=== PATIENT | female | born 1935 | race Two or more races ===

== ENCOUNTER 2017-04-04 18:54 | Inpatient (IN) | payer SELFPAY ==
[~2017-04-04] VITALS: Ht 144.8 cm; Wt 58.4 kg
[~2017-04-04 18:54] MED LIST: CARV6.2551 PO; CITA10TA70 PO; FOLITAB45 OR; FURO40TA PO
[2017-04-04] MEDS ORDERED: SODIUM CHLORIDE 0.9% 1,000 ML IV ONE ×3 (19:09→23:45)
[2017-04-04] MEDS ORDERED: NOREPINEPHRINE BITARTRATE 250 ML IV ONE (19:09)
[2017-04-04] MEDS ORDERED: SUCCINYLCHOLINE CHLORIDE 20 MG/ML 10ML VIAL IV ONE (19:10)
[2017-04-04] MEDS ORDERED: ETOMIDATE (2MG/ML) 20ML VIAL IV ONE (19:10)
[2017-04-04 19:32] LABS: CONDITION Y; DEFINITIVE SEE PRINTOUT; Mean Corpuscular Hemoglobin 33.8 pg (28.0-32.0); Mean Corpuscular Hgb Conc. 33.3 g/dL (32.0-36.0); Mean Corpuscular Volume 101.7 fL (80.0-100.0); Mean Platelet Volume 8.4 fL (7.4-10.4); Platelet Count (auto) 196 10^3/uL (140-450); Red Cell Distribution Width 15.3 % (11.6-16.0); SUSPECT SEE PRINTOUT; White Blood Cell 24.2 10^3/uL (4.4-10.8)
[2017-04-04 19:35] LABS: Metamyelocytes % 0; Myelocytes % 0; Promyelocytes % 0; Reactive Lymphocytes 0
[2017-04-04] MEDS ORDERED: PIPERACILLIN-TAZOB 3.375GM 100 ML IV ONE (19:45)
[2017-04-04] MEDS ORDERED: VANCOMYCIN 1GM/250ML D5W 250 ML IV ONE (19:45)
[2017-04-04 19:53] LABS: Albumin 2.3 g/dL (3.4-5.0); BUN/Creatinine Ratio 17.1; Magnesium 2.2 mg/dL (1.6-2.6); Potassium 3.4 mmol/L (3.5-5.1)
[2017-04-04 19:58] LABS: Bilirubin, Total 2.8 mg/dL (0.2-1.0); Lactic Acid w/Reflex 6.8 mmol/L (0.4-2.0); Total Protein 6.5 g/dL (6.4-8.2)
[2017-04-04 19:59] LABS: Giant Platelets Few; Macrocytosis Slight; Platelet Estimate Adequate
[2017-04-04 20:01] LABS: B-Type Natriuretic Peptide 633.58 pg/mL (0-100)
[2017-04-04 20:02] LABS: REFLEX LACTIC ACID YES OR NO YES; Temperature: 22.7 C (20.0-25.0)
[2017-04-04] MEDS ORDERED: SODIUM CHLORIDE 0.9% 2,000 ML IV ONE (20:15)
[2017-04-04] MEDS ORDERED: MIDAZOLAM DRIP 50 mg/50mL 50 ML IV ONE (20:17)
[2017-04-04 20:45] LABS: Allen Test Modified; Base Excess -7.5 mmol/L (-2.0-2.0); Blood COHb 0.3 % (0.5-1.5); Blood MetHb 0.3 % (0.0-1.5); HCO3 17.7 mmol/L (22-26.0); MODE VENT - A/C; O2Hb 95.4 % (94.0-97.0); PCO2 35.3 mmHg (35.0-45.0); PCO2(T) 35.3 mmHg (35.0-45.0); PO2 87.7 mmHg (80.0-100.0); PO2(T) 87.7 mmHg (80.0-100.0); Sample Type Arterial; pH 7.319 (7.350-7.450)
[2017-04-04] MEDS: MIDAZOLAM DRIP 50 mg/50mL 50 ML IV SCH (20:56)
[2017-04-04 20:58] LABS: Urine Bilirubin Negative (Negative); Urine Blood 1+ /uL (Negative); Urine Color Yellow (Yellow); Urine Glucose 4+ mg/dL (Normal); Urine Ketone Negative (Negative); Urine Nitrite Negative (Negative); Urine RBC <1 /hpf (0 - 4); Urine Squamous Epithelial Cell FEW /hpf (<5); Urine Urobilinogen Normal (Negative); Urine pH 5.5 (5.0-8.0)
[2017-04-04] MEDS ORDERED: DOPamine 1600MCG/ML 250 ML IV ONE (21:15)
[2017-04-04 22:00] VITALS: BP 92/43
[2017-04-04 22:15] VITALS: BP 92/43
[2017-04-05] VITALS (90 sets, daily range): BP systolic 66–167; BP diastolic 27–141
[2017-04-05] MEDS: NOREPINEPHRINE BITARTRATE 250 ML IV SCH ×5 (00:05→19:20)
[2017-04-05] MEDS ORDERED: ONDANSETRON HCL 4 MG/2 ML VIAL IV PRN (00:30)
[2017-04-05] MEDS ORDERED: NITROGLYCERIN 0.4 MG SL TAB SL PRN (00:30)
[2017-04-05] MEDS ORDERED: DEXTROSE (50%) 50ML SYRG IV PRN (00:30)
[2017-04-05] MEDS ORDERED: VANCOMYCIN PER PHARMACY 0 MG IV SCH (00:30)
[2017-04-05] MEDS ORDERED: PANTOPRAZOLE 40 MG/10 ML VIAL IV ONE (00:30)
[2017-04-05] MEDS ORDERED: MORPHINE SULF INJ 2 MG/ML SYRINGE 1ML IV PRN ×2 (00:30)
[2017-04-05] MEDS ORDERED: VASOPRESSIN 20 UNIT/ML ONE (00:42)
[2017-04-05] MEDS: SODIUM CHLORIDE 0.9% 1,000 ML IV SCH ×2 (00:58→13:49)
[2017-04-05] MEDS ORDERED: ALBUMIN 5% 250 ML IV ONE (01:00)
[2017-04-05] MEDS: VASOPRESSIN 50 UNITS in SODIUM CHL 0.9% 247.5 ML IV SCH (01:10)
[2017-04-05 01:30] LABS: Base Excess -9.2 mmol/L (-2.0-2.0); Blood 02Sat 89.6 % (96-100); Blood COHb 0.2 % (0.5-1.5); Blood MetHb 0.4 % (0.0-1.5); HCO3 16.7 mmol/L (22-26.0); HHb 10.3 % (0.0-5.0); MODE VENT - A/C; O2Hb 89.1 % (94.0-97.0); PCO2 36.1 mmHg (35.0-45.0); PCO2(T) 36.1 mmHg (35.0-45.0); Room 1036-ERT; Sample Type Arterial; pH 7.283 (7.350-7.450)
[2017-04-05 01:42] LABS: INR 1.53 (0.9-1.15); Partial Thromboplastin Time 37.5 sec (22.64-33.71); Prothrombin Time 16.7 sec (9.37-12.3)
[2017-04-05 03:48] LABS: CONDITION Y; DEFINITIVE SEE PRINTOUT; Hematocrit 35.4 % (36.0-46.0); Hemoglobin 11.7 g/dL (12.2-16.2); Mean Corpuscular Volume 103.1 fL (80.0-100.0); Platelet Count (auto) 169 10^3/uL (140-450); Red Cell Distribution Width 15.7 % (11.6-16.0); SUSPECT SEE PRINTOUT; White Blood Cell 27.6 10^3/uL (4.4-10.8)
[2017-04-05 03:56] LABS: Promyelocytes % 0; Reactive Lymphocytes 0
[2017-04-05 04:05] LABS: Lactic Acid w/Reflex 5.8 mmol/L (0.4-2.0)
[2017-04-05 04:10] LABS: Albumin 2.5 g/dL (3.4-5.0); BUN/Creatinine Ratio 19.8; Bilirubin, Total 3.4 mg/dL (0.2-1.0); Calcium 8.1 mg/dL (8.5-10.1); Potassium 3.5 mmol/L (3.5-5.1); Total Protein 6.5 g/dL (6.4-8.2)
[2017-04-05 04:18] LABS: REFLEX LACTIC ACID YES OR NO NO
[2017-04-05 04:44] LABS: Hypersegmented Neutrophils Present; Metamyelocytes % 7; Myelocytes % 1
[2017-04-05 04:45] LABS: Anisocytosis Slight; Macrocytosis Slight; Platelet Estimate Adequate
[2017-04-05] MEDS: ACCU-CHEK COMFORT CURVE STRIP VI SCH ×3 (05:22→17:57)
[2017-04-05] MEDS: InsuLIN REG 1unit/0.01ml Soln (100units/ml) SC SCH ×3 (05:22→18:00)
[2017-04-05] MEDS: PIPERACILLIN-TAZOB 2.25GM 50 ML IV SCH ×4 (05:22→23:48)
[2017-04-05 06:37] LABS: Base Excess -9.8 mmol/L (-2.0-2.0); Blood 02Sat 94.4 % (96-100); Blood COHb 1.3 % (0.5-1.5); Blood MetHb 0.1 % (0.0-1.5); HCO3 16.3 mmol/L (22-26.0); HHb 5.5 % (0.0-5.0); MODE VENT - A/C; O2Hb 93.1 % (94.0-97.0); PCO2 36.6 mmHg (35.0-45.0); PCO2(T) 36.6 mmHg (35.0-45.0); PO2 73.7 mmHg (80.0-100.0); PO2(T) 73.7 mmHg (80.0-100.0); Sample Type Arterial; pH 7.267 (7.350-7.450)
[2017-04-05] MEDS: SODIUM BICARBONATE 50ML VIAL 50 ML in SOD CHL 0.45% 1,000 ML IV SCH (09:42)
[2017-04-05] MEDS: PANTOPRAZOLE 40 MG/10 ML VIAL IV SCH (10:33)
[2017-04-05 11:15] LABS: Vitamin B12 1801 pg/mL (211-911)
[2017-04-05 11:55] LABS: Temperature: 23.3 C (20.0-25.0)
[2017-04-05] MEDS ORDERED: SODIUM BICARBONATE 8.4% INJ 50ML SYRINGE ONE (14:59)
[2017-04-05] MEDS ORDERED: SODIUM BICARBONATE 8.4 % INJ 50ML VIAL IV ONE (15:00)
[2017-04-05 16:39] LABS: Base Excess -8.2 mmol/L (-2.0-2.0); Blood 02Sat 95.5 % (96-100); Blood COHb 0.4 % (0.5-1.5); Blood MetHb 0.2 % (0.0-1.5); HCO3 16.7 mmol/L (22-26.0); HHb 4.5 % (0.0-5.0); MODE VENT - A/C; O2Hb 94.9 % (94.0-97.0); PCO2 32.5 mmHg (35.0-45.0); PCO2(T) 32.5 mmHg (35.0-45.0); PO2 77.9 mmHg (80.0-100.0); PO2(T) 77.9 mmHg (80.0-100.0); Sample Type Arterial; pH 7.329 (7.350-7.450)
[2017-04-05 17:38] LABS: Magnesium 1.7 mg/dL (1.6-2.6)
[2017-04-05 17:45] LABS: Lactic Acid w/Reflex 3.6 mmol/L (0.4-2.0)
[2017-04-05 17:50] LABS: Potassium 2.9 mmol/L (3.5-5.1)
[2017-04-05] MEDS: NYSTATIN (MOUTH-THROAT) 500,000 UNITS/5 ML SUSP MT SCH ×2 (17:57→22:11)
[2017-04-05 18:15] LABS: REFLEX LACTIC ACID YES OR NO YES
[2017-04-05] MEDS: MIDAZOLAM DRIP 50 mg/50mL 50 ML IV SCH (18:55)
[2017-04-05] MEDS ORDERED: MAGNESIUM SULFATE 1GM/100ML 100 ML IV ONE (19:00)
[2017-04-05] MEDS ORDERED: POTASSIUM CHL 20MEQ/100ML 100 ML IV ONE (19:00)
[2017-04-05] MEDS: VANCOMYCIN 1GM/250ML D5W 250 ML IV SCH (20:51)
[2017-04-05 23:46] LABS: BUN/Creatinine Ratio 20.7; Calcium 7.1 mg/dL (8.5-10.1); Magnesium 2.3 mg/dL (1.6-2.6); Potassium 3.3 mmol/L (3.5-5.1); REFLEX LACTIC ACID YES OR NO NO
[2017-04-06] VITALS (107 sets, daily range): BP systolic 84–160; BP diastolic 31–103
[2017-04-06] MEDS: NOREPINEPHRINE BITARTRATE 250 ML IV SCH ×5 (00:01→23:16)
[2017-04-06] MEDS: VASOPRESSIN 50 UNITS in SODIUM CHL 0.9% 247.5 ML IV SCH (00:30)
[2017-04-06] MEDS: InsuLIN REG 1unit/0.01ml Soln (100units/ml) SC SCH ×4 (00:34→17:54)
[2017-04-06] MEDS: ACCU-CHEK COMFORT CURVE STRIP VI SCH ×4 (00:35→17:54)
[2017-04-06] MEDS: MIDAZOLAM DRIP 50 mg/50mL 50 ML IV SCH ×4 (03:00→23:16)
[2017-04-06 04:10] LABS: CONDITION Y; Hemoglobin 10.9 g/dL (12.2-16.2); Mean Corpuscular Hemoglobin 33.3 pg (28.0-32.0); Mean Corpuscular Hgb Conc. 33.2 g/dL (32.0-36.0); Mean Corpuscular Volume 100.3 fL (80.0-100.0); Mean Platelet Volume 9.8 fL (7.4-10.4); Platelet Count (auto) 138 10^3/uL (140-450); SUSPECT SEE PRINTOUT; White Blood Cell 21.6 10^3/uL (4.4-10.8)
[2017-04-06] MEDS: SODIUM BICARBONATE 50ML VIAL 50 ML in SOD CHL 0.45% 1,000 ML IV SCH (04:18)
[2017-04-06 04:23] LABS: Metamyelocytes % 0; Myelocytes % 0; Promyelocytes % 0; Reactive Lymphocytes 0
[2017-04-06 04:36] LABS: Potassium 3.1 mmol/L (3.5-5.1)
[2017-04-06 04:45] LABS: BUN/Creatinine Ratio 21.8; Calcium 7.4 mg/dL (8.5-10.1); Magnesium 2.2 mg/dL (1.6-2.6)
[2017-04-06 04:50] LABS: Bilirubin, Total 1.5 mg/dL (0.2-1.0); Total Protein 5.8 g/dL (6.4-8.2)
[2017-04-06] MEDS: PIPERACILLIN-TAZOB 2.25GM 50 ML IV SCH ×3 (06:04→18:12)
[2017-04-06] MEDS: NYSTATIN (MOUTH-THROAT) 500,000 UNITS/5 ML SUSP MT SCH ×4 (06:04→22:04)
[2017-04-06] MEDS ORDERED: POTASSIUM CHL 20MEQ/100ML 100 ML IV ONE (06:30)
[2017-04-06 06:37] LABS: Burr Cells FEW; Platelet Estimate Decreased
[2017-04-06 06:59] LABS: Base Excess -4.9 mmol/L (-2.0-2.0); Blood 02Sat 96.2 % (96-100); Blood COHb 0.9 % (0.5-1.5); Blood MetHb 0.3 % (0.0-1.5); HCO3 19.8 mmol/L (22-26.0); HHb 3.8 % (0.0-5.0); MODE VENT - A/C; PCO2 35.6 mmHg (35.0-45.0); PCO2(T) 35.6 mmHg (35.0-45.0); PO2 81.7 mmHg (80.0-100.0); PO2(T) 81.7 mmHg (80.0-100.0); Sample Type Arterial; pH 7.364 (7.350-7.450)
[2017-04-06] MEDS: PANTOPRAZOLE 40 MG/10 ML VIAL IV SCH (10:27)
[2017-04-06] MEDS ORDERED: SODIUM BICARBONATE 50ML VIAL 50 ML in SOD CHL 0.45% 1,000 ML IV SCH (11:00)
[2017-04-06 12:51] LABS: Phosphorus 1.9 mg/dL (2.5-4.90)
[2017-04-06] MEDS: ALBUMIN 25% 100 ML IV SCH ×2 (14:29→21:59)
[2017-04-06] MEDS: D5W IV SCH ×2 (15:20→22:42)
[2017-04-06] MEDS: SODIUM BICARBONATE IV SCH ×2 (15:20→22:42)
[2017-04-06] MEDS: POTASSIUM CHLORIDE IV SCH ×2 (15:20→22:42)
[2017-04-06] MEDS: VANCOMYCIN 1GM/250ML D5W 250 ML IV SCH (20:10)
[2017-04-07] VITALS (98 sets, daily range): BP systolic 77–154; BP diastolic 31–76
[2017-04-07 04:11] LABS: CONDITION Y; Hemoglobin 9.7 g/dL (12.2-16.2); Mean Corpuscular Hemoglobin 33.5 pg (28.0-32.0); Mean Corpuscular Hgb Conc. 33.6 g/dL (32.0-36.0); Mean Corpuscular Volume 99.7 fL (80.0-100.0); Mean Platelet Volume 10.2 fL (7.4-10.4); Platelet Count (auto) 93 10^3/uL (140-450); Red Cell Distribution Width 15.9 % (11.6-16.0); SUSPECT SEE PRINTOUT; White Blood Cell 17.8 10^3/uL (4.4-10.8)
[2017-04-07 04:22] LABS: Metamyelocytes % 0; Myelocytes % 0; Promyelocytes % 0; Reactive Lymphocytes 0
[2017-04-07 04:35] LABS: Albumin 2.6 g/dL (3.4-5.0); Alkaline Phosphatase 82 U/L (45-117); Anion Gap 11 (5-15); Aspartate Aminotransferase 28 U/L (15-37); BUN/Creatinine Ratio 18.8; Bilirubin, Total 1.3 mg/dL (0.2-1.0); Blood Urea Nitrogen 26 mg/dL (7-18); Calcium 7.4 mg/dL (8.5-10.1); Carbon Dioxide 20 mmol/L (21-32); Chloride 110 mmol/L (98-107); Cholesterol < 50 mg/dL (< 200); GFR African American 47 mL/min; GFR Non-African American 39 mL/min; Glucose 178 mg/dL (74-106); HDL Cholesterol 8 mg/dL (40-59); LDL Cholesterol 23 mg/dL (< 100); Potassium 3.4 mmol/L (3.5-5.1); Sodium 141 mmol/L (136-145); Total Protein 5.5 g/dL (6.4-8.2); Triglycerides 168 mg/dL (< 150)
[2017-04-07] MEDS: ACCU-CHEK COMFORT CURVE STRIP VI SCH ×4 (04:47→18:15)
[2017-04-07] MEDS: PIPERACILLIN-TAZOB 2.25GM 50 ML IV SCH ×2 (05:04)
[2017-04-07] MEDS: NYSTATIN (MOUTH-THROAT) 500,000 UNITS/5 ML SUSP MT SCH ×4 (05:05→23:00)
[2017-04-07] MEDS: InsuLIN REG 1unit/0.01ml Soln (100units/ml) SC SCH ×4 (05:13→18:00)
[2017-04-07] MEDS ORDERED: SUCCINYLCHOLINE CHLORIDE 20 MG/ML 10ML VIAL IV ONE ×2 (07:02→07:03)
[2017-04-07] MEDS ORDERED: LIDOCAINE 1% HCL (LOCAL ANESTH.) INJ 20ML MDV ONE ×2 (07:02→07:03)
[2017-04-07] MEDS ORDERED: fentaNYL CITRATE 100 MCG/2 ML VL ONE (07:12)
[2017-04-07] MEDS ORDERED: PROPOFOL 10 MG/ML 20 ML IV ONE (07:12)
[2017-04-07] MEDS ORDERED: ONDANSETRON HCL 4 MG/2 ML VIAL ONE (07:12)
[2017-04-07] MEDS ORDERED: SODIUM CHLORIDE LOCK 10 ML ONE (07:12)
[2017-04-07] MEDS ORDERED: MIDAZOLAM HCL 1MG/1ML-2 ML VIAL ONE (07:12)
[2017-04-07 07:26] LABS: Platelet Estimate Decreased
[2017-04-07] MEDS ORDERED: ALBUMIN 5% 250 ML IV ONE (07:45)
[2017-04-07] MEDS ORDERED: IOHEXOL 300 MG/ML 100ML BOTTLE IJ ONE (07:45)
[2017-04-07] MEDS ORDERED: fentaNYL CITRATE 5 ML ONE (07:46)
[2017-04-07] MEDS ORDERED: ROCURONIUM 10MG/ML 10ML VIAL IV ONE (07:46)
[2017-04-07 08:04] LABS: Allen Test Modified; Base Excess -4.7 mmol/L (-2.0-2.0); Blood 02Sat 95.8 % (96-100); Blood COHb 0.4 % (0.5-1.5); Blood MetHb 0.2 % (0.0-1.5); HHb 4.2 % (0.0-5.0); MODE VENT - A/C; O2Hb 95.2 % (94.0-97.0); PCO2 30.8 mmHg (35.0-45.0); PCO2(T) 30.8 mmHg (35.0-45.0); PIP 25; PO2 80.1 mmHg (80.0-100.0); PO2(T) 80.1 mmHg (80.0-100.0); Sample Type Arterial; pH 7.408 (7.350-7.450)
[2017-04-07 08:39] LABS: INR 1.16 (0.9-1.15); Partial Thromboplastin Time 39.5 sec (22.64-33.71); Prothrombin Time 12.7 sec (9.37-12.3)
[2017-04-07] MEDS: PANTOPRAZOLE 40 MG/10 ML VIAL IV SCH (10:41)
[2017-04-07] MEDS: ALBUMIN 25% 100 ML IV SCH ×2 (10:41→23:00)
[2017-04-07] MEDS ORDERED: cefTRIAXone 1GM/50ML D5W 50 ML IV ONE (12:00)
[2017-04-07] MEDS: NOREPINEPHRINE BITARTRATE 250 ML IV SCH (12:50)
[2017-04-07] MEDS: MIDAZOLAM DRIP 50 mg/50mL 50 ML IV SCH (12:50)
[2017-04-07] MEDS: D5W IV SCH (15:00)
[2017-04-07] MEDS: POTASSIUM CHLORIDE IV SCH (15:00)
[2017-04-07] MEDS: SODIUM BICARBONATE IV SCH (15:00)
[2017-04-07] MEDS: metroNIDAZOLE 500MG/100ML 100 ML IV SCH ×2 (15:00→23:00)
[2017-04-07] MEDS ORDERED: POTASSIUM CHL 20MEQ/100ML 200 ML IV ONE (16:02)
[2017-04-07] MEDS: POTASSIUM CHL 20MEQ/100ML 100 ML IV SCH ×2 (16:15→18:09)
[2017-04-08] VITALS (89 sets, daily range): BP systolic 66–154; BP diastolic 30–81
[2017-04-08] MEDS: ACCU-CHEK COMFORT CURVE STRIP VI SCH ×4 (00:40→18:27)
[2017-04-08] MEDS: InsuLIN REG 1unit/0.01ml Soln (100units/ml) SC SCH ×4 (01:02→18:00)
[2017-04-08] MEDS: D5W IV SCH ×2 (03:00→06:48)
[2017-04-08] MEDS: POTASSIUM CHLORIDE IV SCH ×2 (03:00→06:48)
[2017-04-08] MEDS: SODIUM BICARBONATE IV SCH ×2 (03:00→06:48)
[2017-04-08] MEDS: metroNIDAZOLE 500MG/100ML 100 ML IV SCH ×3 (06:00→22:08)
[2017-04-08] MEDS: NYSTATIN (MOUTH-THROAT) 500,000 UNITS/5 ML SUSP MT SCH ×4 (06:00→22:11)
[2017-04-08 06:40] LABS: Basophils # (auto) 0 uL; Basophils % (auto) 0.1 % (0.0-2.0); CONDITION Y; DEFINITIVE SEE PRINTOUT; Eosinophils # (auto) 0.3 uL; Eosinophils % (auto) 2.6 % (0.0-7.0); Hematocrit 33.3 % (36.0-46.0); Hemoglobin 11.1 g/dL (12.2-16.2); Lymphocytes # (auto) 0.7 uL; Lymphocytes % (auto) 5.9 % (10.0-50.0); Mean Corpuscular Hemoglobin 32.7 pg (28.0-32.0); Mean Corpuscular Hgb Conc. 33.3 g/dL (32.0-36.0); Mean Corpuscular Volume 98.1 fL (80.0-100.0); Monocytes # (auto) 0.4 uL; Monocytes % (auto) 3.5 % (0.0-12.0); Neutrophils # (auto) 10.1 uL; Neutrophils % (auto) 87.9 % (37.0-80.0); Platelet Count (auto) 59 10^3/uL (140-450); SUSPECT SEE PRINTOUT; White Blood Cell 11.5 10^3/uL (4.4-10.8)
[2017-04-08 07:11] LABS: Albumin 2.7 g/dL (3.4-5.0); Bilirubin, Total 1.5 mg/dL (0.2-1.0); Calcium 7.9 mg/dL (8.5-10.1); Potassium 4.7 mmol/L (3.5-5.1); Total Protein 5.1 g/dL (6.4-8.2)
[2017-04-08 07:19] LABS: BUN/Creatinine Ratio 20.6
[2017-04-08 08:06] LABS: B-Type Natriuretic Peptide 796.64 pg/mL (0-100)
[2017-04-08 08:11] LABS: Temperature: 24.5 C (20.0-25.0)
[2017-04-08] MEDS ORDERED: cefTRIAXone 1GM/50ML D5W 50 ML IV SCH (09:00)
[2017-04-08] MEDS: NOREPINEPHRINE BITARTRATE 250 ML IV SCH (09:30)
[2017-04-08 09:53] LABS: Base Excess -1.1 mmol/L (-2.0-2.0); Blood 02Sat 95.2 % (96-100); Blood COHb 1.4 % (0.5-1.5); Blood MetHb 0.3 % (0.0-1.5); HCO3 23.8 mmol/L (22-26.0); HHb 4.7 % (0.0-5.0); MODE VENT - A/C; O2Hb 93.6 % (94.0-97.0); PCO2 40.5 mmHg (35.0-45.0); PCO2(T) 40.5 mmHg (35.0-45.0); PO2 74.4 mmHg (80.0-100.0); PO2(T) 74.4 mmHg (80.0-100.0); Sample Type Arterial; pH 7.387 (7.350-7.450)
[2017-04-08] MEDS: PANTOPRAZOLE 40 MG/10 ML VIAL IV SCH (10:10)
[2017-04-08] MEDS ORDERED: POTASSIUM CHL 20 Meq TABLET PO ONE (14:30)
[2017-04-08] MEDS ORDERED: FUROSEMIDE 20 MG/2 ML VIAL IV ONE (14:30)
[2017-04-08] MEDS ORDERED: POTASSIUM CHL 10% (20 MEQ/15ML) 15ml ORAL SOLN ONE (15:17)
[2017-04-08] MEDS: MORPHINE SULF INJ 2 MG/ML SYRINGE 1ML IV PRN (15:27)
[2017-04-08] MEDS ORDERED: POTASSIUM CHL 10% (20 MEQ/15ML) 15ml ORAL SOLN GT ONE (15:30)
[2017-04-08] MEDS ORDERED: ALBUMIN 25% 100 ML IV ONE (17:00)
[2017-04-08] MEDS: MIDAZOLAM DRIP 50 mg/50mL 50 ML IV SCH (20:08)
[2017-04-08] MEDS: cefTRIAXone 1GM/50ML D5W 50 ML IV SCH (21:14)
[2017-04-08] MEDS ORDERED: ALBUMIN 25% 100 ML IV SCH (22:00)
[2017-04-09] VITALS (105 sets, daily range): BP systolic 44–168; BP diastolic 21–96
[2017-04-09] MEDS: ACETAMINOPHEN 325 MG TAB PO PRN ×2 (02:00→15:14)
[2017-04-09 04:31] LABS: Basophils # (auto) 0 uL; Basophils % (auto) 0.1 % (0.0-2.0); CONDITION Y; DEFINITIVE SEE PRINTOUT; Eosinophils # (auto) 0.3 uL; Eosinophils % (auto) 2.8 % (0.0-7.0); Hematocrit 35.1 % (36.0-46.0); Hemoglobin 11.8 g/dL (12.2-16.2); Lymphocytes # (auto) 0.9 uL; Lymphocytes % (auto) 8.3 % (10.0-50.0); Mean Corpuscular Hemoglobin 33.1 pg (28.0-32.0); Mean Corpuscular Hgb Conc. 33.6 g/dL (32.0-36.0); Mean Corpuscular Volume 98.4 fL (80.0-100.0); Mean Platelet Volume 10.1 fL (7.4-10.4); Monocytes # (auto) 0.6 uL; Monocytes % (auto) 5.5 % (0.0-12.0); Neutrophils # (auto) 9.2 uL; Neutrophils % (auto) 83.3 % (37.0-80.0); Platelet Count (auto) 57 10^3/uL (140-450); White Blood Cell 11.1 10^3/uL (4.4-10.8)
[2017-04-09 05:02] LABS: Potassium 4.7 mmol/L (3.5-5.1)
[2017-04-09 05:07] LABS: Albumin 2.8 g/dL (3.4-5.0); BUN/Creatinine Ratio 21.8
[2017-04-09 05:10] LABS: Bilirubin, Total 1.9 mg/dL (0.2-1.0); Total Protein 5.2 g/dL (6.4-8.2)
[2017-04-09] MEDS: ACCU-CHEK COMFORT CURVE STRIP VI SCH ×4 (06:00→18:00)
[2017-04-09] MEDS: NYSTATIN (MOUTH-THROAT) 500,000 UNITS/5 ML SUSP MT SCH ×4 (06:00→22:00)
[2017-04-09] MEDS: metroNIDAZOLE 500MG/100ML 100 ML IV SCH ×3 (06:00→22:00)
[2017-04-09] MEDS: InsuLIN REG 1unit/0.01ml Soln (100units/ml) SC SCH ×4 (06:00→18:00)
[2017-04-09 07:09] LABS: Base Excess 2.2 mmol/L (-2.0-2.0); Blood 02Sat 95.7 % (96-100); Blood COHb 1.7 % (0.5-1.5); Blood MetHb 0.3 % (0.0-1.5); HHb 4.2 % (0.0-5.0); IE RATIO 1.3.4; MODE VENT - A/C; O2Hb 93.8 % (94.0-97.0); PCO2 37.6 mmHg (35.0-45.0); PCO2(T) 37.6 mmHg (35.0-45.0); PIP 23; Sample Type Arterial; Spont Vt 410; pH 7.457 (7.350-7.450)
[2017-04-09] MEDS: cefTRIAXone 1GM/50ML D5W 50 ML IV SCH ×2 (09:04→21:00)
[2017-04-09] MEDS: PANTOPRAZOLE 40 MG/10 ML VIAL IV SCH (09:05)
[2017-04-09] MEDS: Diabetisource AC 1 Liter GT SCH (11:03)
[2017-04-09] MEDS ORDERED: ALBUMIN 25% 100 ML IV ONE (12:30)
[2017-04-09] MEDS ORDERED: FUROSEMIDE 40 MG/4 ML VIAL IV ONE (12:30)
[2017-04-09] MEDS: MIDAZOLAM DRIP 50 mg/50mL 50 ML IV SCH (20:08)
[2017-04-09] MEDS: NOREPINEPHRINE BITARTRATE 250 ML IV SCH (22:15)
[2017-04-10] VITALS (88 sets, daily range): BP systolic 68–165; BP diastolic 27–87
[2017-04-10] MEDS: ACCU-CHEK COMFORT CURVE STRIP VI SCH ×4 (00:19→18:26)
[2017-04-10] MEDS: InsuLIN REG 1unit/0.01ml Soln (100units/ml) SC SCH ×4 (06:00→18:00)
[2017-04-10] MEDS: metroNIDAZOLE 500MG/100ML 100 ML IV SCH ×3 (06:00→22:00)
[2017-04-10] MEDS: NYSTATIN (MOUTH-THROAT) 500,000 UNITS/5 ML SUSP MT SCH ×4 (06:00→22:00)
[2017-04-10] MEDS: cefTRIAXone 1GM/50ML D5W 50 ML IV SCH ×2 (09:06→21:00)
[2017-04-10] MEDS ORDERED: METOCLOPRAMIDE HCL 5MG/ml INJ 2ml VIAL IV ONE (09:15)
[2017-04-10] MEDS: Diabetisource AC 1 Liter GT SCH (09:42)
[2017-04-10] MEDS: PANTOPRAZOLE 40 MG/10 ML VIAL IV SCH (10:06)
[2017-04-10] MEDS: ACETAMINOPHEN 325 MG TAB PO PRN (10:29)
[2017-04-10 11:14] LABS: Basophils # (auto) 0 uL; Basophils % (auto) 0.1 % (0.0-2.0); CONDITION Y; Eosinophils # (auto) 0.3 uL; Eosinophils % (auto) 2.5 % (0.0-7.0); Hematocrit 35.1 % (36.0-46.0); Hemoglobin 11.8 g/dL (12.2-16.2); Lymphocytes % (auto) 7.6 % (10.0-50.0); Mean Corpuscular Hemoglobin 32.8 pg (28.0-32.0); Mean Corpuscular Hgb Conc. 33.6 g/dL (32.0-36.0); Mean Corpuscular Volume 97.6 fL (80.0-100.0); Mean Platelet Volume 10.1 fL (7.4-10.4); Monocytes # (auto) 0.6 uL; Monocytes % (auto) 5.1 % (0.0-12.0); Neutrophils # (auto) 10.8 uL; Neutrophils % (auto) 84.7 % (37.0-80.0); Platelet Count (auto) 81 10^3/uL (140-450); Red Cell Distribution Width 17.3 % (11.6-16.0); White Blood Cell 12.7 10^3/uL (4.4-10.8)
[2017-04-10 11:33] LABS: BUN/Creatinine Ratio 21.2; Calcium 8.4 mg/dL (8.5-10.1); Potassium 3.5 mmol/L (3.5-5.1)
[2017-04-10] MEDS: METOCLOPRAMIDE HCL 5MG/ml INJ 2ml VIAL IV SCH ×2 (14:08→22:00)
[2017-04-10] MEDS ORDERED: SODIUM CHLORIDE 0.9% 1,000 ML IV ONE (16:00)
[2017-04-10] MEDS: MORPHINE SULF INJ 2 MG/ML SYRINGE 1ML IV PRN (17:08)
[2017-04-10] MEDS: MIDAZOLAM DRIP 50 mg/50mL 50 ML IV SCH (20:08)
[2017-04-10] MEDS: NOREPINEPHRINE BITARTRATE 250 ML IV SCH (22:15)
[2017-04-11] VITALS (94 sets, daily range): BP systolic 68–132; BP diastolic 32–90
[2017-04-11] MEDS: InsuLIN REG 1unit/0.01ml Soln (100units/ml) SC SCH ×4 (00:07→18:00)
[2017-04-11] MEDS: ACCU-CHEK COMFORT CURVE STRIP VI SCH ×4 (00:07→18:00)
[2017-04-11 03:17] LABS: Basophils # (auto) 0 uL; Basophils % (auto) 0.1 % (0.0-2.0); CONDITION Y; Eosinophils # (auto) 0.4 uL; Eosinophils % (auto) 3.1 % (0.0-7.0); Hematocrit 33.7 % (36.0-46.0); Hemoglobin 11.2 g/dL (12.2-16.2); Lymphocytes # (auto) 1.1 uL; Lymphocytes % (auto) 9.3 % (10.0-50.0); Mean Corpuscular Hemoglobin 32.6 pg (28.0-32.0); Mean Corpuscular Hgb Conc. 33.2 g/dL (32.0-36.0); Mean Corpuscular Volume 98.4 fL (80.0-100.0); Mean Platelet Volume 9.6 fL (7.4-10.4); Monocytes # (auto) 0.8 uL; Monocytes % (auto) 6.5 % (0.0-12.0); Neutrophils # (auto) 9.6 uL; Platelet Count (auto) 112 10^3/uL (140-450); Red Cell Distribution Width 17.1 % (11.6-16.0); White Blood Cell 11.8 10^3/uL (4.4-10.8)
[2017-04-11 03:33] LABS: BUN/Creatinine Ratio 21.3
[2017-04-11 03:35] LABS: Potassium 2.9 mmol/L (3.5-5.1)
[2017-04-11] MEDS ORDERED: POTASSIUM CHL 20MEQ/100ML 100 ML IV ONE (04:53)
[2017-04-11] MEDS ORDERED: POTASSIUM CHL 10% (20 MEQ/15ML) 15ml ORAL SOLN GT ONE (05:00)
[2017-04-11] MEDS: POTASSIUM CHL 20MEQ/100ML 100 ML IV SCH ×4 (05:00→16:57)
[2017-04-11] MEDS ORDERED: POTASSIUM CHL 10% (20 MEQ/15ML) 15ml ORAL SOLN ONE (05:37)
[2017-04-11] MEDS: METOCLOPRAMIDE HCL 5MG/ml INJ 2ml VIAL IV SCH ×3 (06:00→22:25)
[2017-04-11] MEDS: NYSTATIN (MOUTH-THROAT) 500,000 UNITS/5 ML SUSP MT SCH ×4 (06:00→22:25)
[2017-04-11] MEDS: metroNIDAZOLE 500MG/100ML 100 ML IV SCH ×3 (06:00→22:25)
[2017-04-11] MEDS: cefTRIAXone 1GM/50ML D5W 50 ML IV SCH ×2 (08:59→20:59)
[2017-04-11 09:06] LABS: Allen Test Modified; Base Excess 2.2 mmol/L (-2.0-2.0); Blood 02Sat 95.7 % (96-100); Blood COHb 1.3 % (0.5-1.5); Blood MetHb 0.4 % (0.0-1.5); HCO3 26.3 mmol/L (22-26.0); HHb 4.2 % (0.0-5.0); MODE VENT - A/C; O2Hb 94.1 % (94.0-97.0); PCO2 39.3 mmHg (35.0-45.0); PCO2(T) 40.2 mmHg (35.0-45.0); PO2 79.8 mmHg (80.0-100.0); PO2(T) 82.5 mmHg (80.0-100.0); Sample Type Arterial; pH 7.444 (7.350-7.450)
[2017-04-11] MEDS: PANTOPRAZOLE 40 MG/10 ML VIAL IV SCH (10:00)
[2017-04-11] MEDS ORDERED: FLUCONAZOLE 200MG/100ML 100 ML IV ONE (14:30)
[2017-04-11] MEDS ORDERED: FUROSEMIDE 40 MG/4 ML VIAL IV ONE (14:30)
[2017-04-11] MEDS: NOREPINEPHRINE BITARTRATE 250 ML IV SCH (15:35)
[2017-04-11] MEDS: MIDAZOLAM DRIP 50 mg/50mL 50 ML IV SCH (20:08)
[2017-04-12] VITALS (102 sets, daily range): BP systolic 64–126; BP diastolic 32–68
[2017-04-12] MEDS: ACCU-CHEK COMFORT CURVE STRIP VI SCH ×4 (00:06→18:10)
[2017-04-12] MEDS: InsuLIN REG 1unit/0.01ml Soln (100units/ml) SC SCH ×4 (00:06→18:10)
[2017-04-12 03:38] LABS: Basophils # (auto) 0 uL; Basophils % (auto) 0.1 % (0.0-2.0); CONDITION Y; Eosinophils # (auto) 0.3 uL; Eosinophils % (auto) 2.3 % (0.0-7.0); Hematocrit 32.2 % (36.0-46.0); Hemoglobin 10.6 g/dL (12.2-16.2); Lymphocytes # (auto) 1.2 uL; Lymphocytes % (auto) 10.4 % (10.0-50.0); Mean Corpuscular Hemoglobin 32.5 pg (28.0-32.0); Mean Corpuscular Hgb Conc. 33.1 g/dL (32.0-36.0); Mean Corpuscular Volume 98.1 fL (80.0-100.0); Mean Platelet Volume 9.4 fL (7.4-10.4); Monocytes % (auto) 8.3 % (0.0-12.0); Neutrophils # (auto) 9.3 uL; Neutrophils % (auto) 78.9 % (37.0-80.0); Platelet Count (auto) 155 10^3/uL (140-450); Red Cell Distribution Width 17.2 % (11.6-16.0); White Blood Cell 11.8 10^3/uL (4.4-10.8)
[2017-04-12 03:57] LABS: BUN/Creatinine Ratio 22.3; Calcium 8.2 mg/dL (8.5-10.1); Magnesium 1.9 mg/dL (1.6-2.6); Potassium 4.2 mmol/L (3.5-5.1)
[2017-04-12] MEDS: Diabetisource AC 1 Liter GT SCH (05:31)
[2017-04-12] MEDS: NYSTATIN (MOUTH-THROAT) 500,000 UNITS/5 ML SUSP MT SCH ×4 (05:43→21:50)
[2017-04-12] MEDS: metroNIDAZOLE 500MG/100ML 100 ML IV SCH ×3 (05:43→21:50)
[2017-04-12] MEDS: METOCLOPRAMIDE HCL 5MG/ml INJ 2ml VIAL IV SCH ×3 (05:43→21:50)
[2017-04-12] MEDS: cefTRIAXone 1GM/50ML D5W 50 ML IV SCH ×2 (08:34→20:52)
[2017-04-12] MEDS: PANTOPRAZOLE 40 MG/10 ML VIAL IV SCH (09:42)
[2017-04-12] MEDS: FLUCONAZOLE 200MG/100ML 100 ML IV SCH (09:42)
[2017-04-12] MEDS ORDERED: VANCOMYCIN PER PHARMACY 0 MG IV SCH (13:30)
[2017-04-12] MEDS ORDERED: VANCOMYCIN 1GM/250ML D5W 250 ML IV ONE (15:00)
[2017-04-12] MEDS: MIDAZOLAM DRIP 50 mg/50mL 50 ML IV SCH (20:08)
[2017-04-12] MEDS: MORPHINE SULF INJ 2 MG/ML SYRINGE 1ML IV PRN (21:50)
[2017-04-12] MEDS: NOREPINEPHRINE BITARTRATE 250 ML IV SCH (22:15)
[2017-04-13] VITALS (105 sets, daily range): BP systolic 81–135; BP diastolic 41–99
[2017-04-13] MEDS: InsuLIN REG 1unit/0.01ml Soln (100units/ml) SC SCH ×4 (00:04→18:10)
[2017-04-13] MEDS: ACCU-CHEK COMFORT CURVE STRIP VI SCH ×4 (00:04→18:09)
[2017-04-13 04:25] LABS: Albumin 2.4 g/dL (3.4-5.0); BUN/Creatinine Ratio 26.5; Calcium 8.2 mg/dL (8.5-10.1); Potassium 3.4 mmol/L (3.5-5.1)
[2017-04-13 04:28] LABS: Bilirubin, Total 0.8 mg/dL (0.2-1.0)
[2017-04-13] MEDS: NYSTATIN (MOUTH-THROAT) 500,000 UNITS/5 ML SUSP MT SCH ×4 (05:56→21:52)
[2017-04-13] MEDS: metroNIDAZOLE 500MG/100ML 100 ML IV SCH ×3 (05:56→22:41)
[2017-04-13] MEDS: METOCLOPRAMIDE HCL 5MG/ml INJ 2ml VIAL IV SCH (05:56)
[2017-04-13] MEDS: NOREPINEPHRINE BITARTRATE 250 ML IV SCH (08:44)
[2017-04-13] MEDS: cefTRIAXone 1GM/50ML D5W 50 ML IV SCH ×2 (08:44→21:51)
[2017-04-13] MEDS: FLUCONAZOLE 200MG/100ML 100 ML IV SCH (09:37)
[2017-04-13] MEDS: PANTOPRAZOLE 40 MG/10 ML VIAL IV SCH (09:37)
[2017-04-13] MEDS ORDERED: POTASSIUM CHL 10% (20 MEQ/15ML) 15ml ORAL SOLN GT ONE (13:45)
[2017-04-13] MEDS ORDERED: FUROSEMIDE 20 MG/2 ML VIAL IV ONE (13:45)
[2017-04-13] MEDS: ACETAMINOPHEN 325 MG TAB PO PRN (16:53)
[2017-04-13] MEDS ORDERED: VANCOMYCIN 1GM/250ML D5W 250 ML IV SCH (20:00)
[2017-04-13] MEDS: MIDAZOLAM DRIP 50 mg/50mL 50 ML IV SCH (20:08)
[2017-04-14] VITALS (105 sets, daily range): BP systolic 70–153; BP diastolic 36–82
[2017-04-14] MEDS: ACCU-CHEK COMFORT CURVE STRIP VI SCH ×5 (00:07→23:46)
[2017-04-14] MEDS: InsuLIN REG 1unit/0.01ml Soln (100units/ml) SC SCH ×5 (00:08→23:47)
[2017-04-14] MEDS: MORPHINE SULF INJ 2 MG/ML SYRINGE 1ML IV PRN ×2 (03:29→19:35)
[2017-04-14 04:08] LABS: Basophils # (auto) 0 uL; Basophils % (auto) 0.3 % (0.0-2.0); CONDITION Y; Eosinophils # (auto) 0.3 uL; Eosinophils % (auto) 3.1 % (0.0-7.0); Hematocrit 27.1 % (36.0-46.0); Hemoglobin 9.1 g/dL (12.2-16.2); Lymphocytes # (auto) 1.3 uL; Lymphocytes % (auto) 13.8 % (10.0-50.0); Mean Corpuscular Hemoglobin 32.8 pg (28.0-32.0); Mean Corpuscular Hgb Conc. 33.6 g/dL (32.0-36.0); Mean Corpuscular Volume 97.8 fL (80.0-100.0); Mean Platelet Volume 8.9 fL (7.4-10.4); Monocytes # (auto) 0.9 uL; Monocytes % (auto) 9.1 % (0.0-12.0); Neutrophils # (auto) 7.1 uL; Neutrophils % (auto) 73.7 % (37.0-80.0); Platelet Count (auto) 207 10^3/uL (140-450); Red Cell Distribution Width 16.4 % (11.6-16.0); White Blood Cell 9.7 10^3/uL (4.4-10.8)
[2017-04-14 04:25] LABS: Albumin 2.4 g/dL (3.4-5.0); BUN/Creatinine Ratio 29.5; Calcium 8.3 mg/dL (8.5-10.1); Potassium 3.4 mmol/L (3.5-5.1)
[2017-04-14 04:28] LABS: Bilirubin, Total 0.9 mg/dL (0.2-1.0); Total Protein 5.8 g/dL (6.4-8.2)
[2017-04-14] MEDS: NYSTATIN (MOUTH-THROAT) 500,000 UNITS/5 ML SUSP MT SCH ×4 (06:04→22:01)
[2017-04-14] MEDS: metroNIDAZOLE 500MG/100ML 100 ML IV SCH ×3 (06:04→22:02)
[2017-04-14 07:26] LABS: Allen Test No; Base Excess 4.9 mmol/L (-2.0-2.0); Blood 02Sat 96.1 % (96-100); Blood COHb 1.9 % (0.5-1.5); Blood MetHb 0.3 % (0.0-1.5); HCO3 29.6 mmol/L (22-26.0); HHb 3.8 % (0.0-5.0); MODE VENT - A/C; PCO2 43.6 mmHg (35.0-45.0); PCO2(T) 43.6 mmHg (35.0-45.0); PO2 80.3 mmHg (80.0-100.0); PO2(T) 80.3 mmHg (80.0-100.0); Sample Type Arterial; pH 7.449 (7.350-7.450)
[2017-04-14] MEDS: cefTRIAXone 1GM/50ML D5W 50 ML IV SCH ×2 (09:10→21:09)
[2017-04-14] MEDS: PANTOPRAZOLE 40 MG/10 ML VIAL IV SCH (10:00)
[2017-04-14] MEDS ORDERED: POTASSIUM CHL 10% (20 MEQ/15ML) 15ml ORAL SOLN GT ONE (10:15)
[2017-04-14] MEDS ORDERED: FUROSEMIDE 40 MG/4 ML VIAL IV ONE (10:15)
[2017-04-14] MEDS: FLUCONAZOLE 200MG/100ML 100 ML IV SCH (10:42)
[2017-04-14] MEDS: NOREPINEPHRINE BITARTRATE 250 ML IV SCH (10:42)
[2017-04-14] MEDS: Diabetisource AC 1 Liter GT SCH (16:18)
[2017-04-14] MEDS ORDERED: MIDAZOLAM DRIP 50 mg/50mL 50 ML IV SCH (20:08)
[2017-04-14] MEDS ORDERED: LORazepam 2MG/ML-1ML VIAL IV PRN (21:15)
[2017-04-15] VITALS (107 sets, daily range): BP systolic 72–137; BP diastolic 34–89
[2017-04-15 04:34] LABS: Basophils # (auto) 0.1 uL; Basophils % (auto) 0.6 % (0.0-2.0); Eosinophils # (auto) 0.2 uL; Eosinophils % (auto) 2.4 % (0.0-7.0); Hematocrit 26.7 % (36.0-46.0); Hemoglobin 9.2 g/dL (12.2-16.2); Lymphocytes # (auto) 1.5 uL; Lymphocytes % (auto) 16.2 % (10.0-50.0); Mean Corpuscular Hemoglobin 33.4 pg (28.0-32.0); Mean Corpuscular Hgb Conc. 34.3 g/dL (32.0-36.0); Mean Corpuscular Volume 97.3 fL (80.0-100.0); Mean Platelet Volume 8.2 fL (7.4-10.4); Monocytes # (auto) 0.9 uL; Monocytes % (auto) 9.8 % (0.0-12.0); Neutrophils # (auto) 6.6 uL; Platelet Count (auto) 195 10^3/uL (140-450); Red Cell Distribution Width 15.9 % (11.6-16.0); White Blood Cell 9.3 10^3/uL (4.4-10.8)
[2017-04-15 05:02] LABS: Albumin 2.5 g/dL (3.4-5.0); BUN/Creatinine Ratio 26.3; Calcium 8.6 mg/dL (8.5-10.1); Potassium 3.6 mmol/L (3.5-5.1)
[2017-04-15 05:04] LABS: Bilirubin, Total 0.8 mg/dL (0.2-1.0); Total Protein 6.1 g/dL (6.4-8.2)
[2017-04-15] MEDS: NYSTATIN (MOUTH-THROAT) 500,000 UNITS/5 ML SUSP MT SCH ×4 (05:36→22:09)
[2017-04-15] MEDS: metroNIDAZOLE 500MG/100ML 100 ML IV SCH ×3 (05:37→22:09)
[2017-04-15] MEDS: InsuLIN REG 1unit/0.01ml Soln (100units/ml) SC SCH ×4 (05:47→23:47)
[2017-04-15] MEDS: ACCU-CHEK COMFORT CURVE STRIP VI SCH ×4 (05:47→23:48)
[2017-04-15] MEDS ORDERED: VANCOMYCIN 1GM/250ML D5W 250 ML IV SCH (08:00)
[2017-04-15] MEDS: cefTRIAXone 1GM/50ML D5W 50 ML IV SCH ×2 (09:10→21:26)
[2017-04-15] MEDS: FLUCONAZOLE 200MG/100ML 100 ML IV SCH (09:46)
[2017-04-15] MEDS: PANTOPRAZOLE 40 MG/10 ML VIAL IV SCH (09:46)
[2017-04-15] MEDS ORDERED: POTASSIUM CHL 10% (20 MEQ/15ML) 15ml ORAL SOLN PO SCH (10:00)
[2017-04-15] MEDS ORDERED: FUROSEMIDE 40 MG/4 ML VIAL IV SCH (10:00)
[2017-04-15] MEDS ORDERED: FUROSEMIDE 40 MG/4 ML VIAL ONE (11:52)
[2017-04-15] MEDS ORDERED: MORPHINE SULF INJ 2 MG/ML SYRINGE 1ML IV PRN ×2 (12:00→12:15)
[2017-04-15] MEDS ORDERED: FUROSEMIDE 40 MG/4 ML VIAL IV ONE (12:00)
[2017-04-15] MEDS ORDERED: POTASSIUM CHL 10% (20 MEQ/15ML) 15ml ORAL SOLN PO ONE (12:00)
[2017-04-15 14:57] LABS: Base Excess 4.5 mmol/L (-2.0-2.0); Blood 02Sat 97.7 % (96-100); Blood COHb 1.3 % (0.5-1.5); Blood MetHb 0.3 % (0.0-1.5); HCO3 29.5 mmol/L (22-26.0); HHb 2.3 % (0.0-5.0); MODE VENT - CPAP; O2Hb 96.1 % (94.0-97.0); PO2 112.3 mmHg (80.0-100.0); PO2(T) 112.3 mmHg (80.0-100.0); Pressure Support 8; Sample Type Arterial; Spont Vt 287; pH 7.425 (7.350-7.450)
[2017-04-15] MEDS: NOREPINEPHRINE BITARTRATE 250 ML IV SCH (22:15)
[2017-04-16] VITALS (100 sets, daily range): BP systolic 84–129; BP diastolic 29–74
[2017-04-16 05:36] LABS: Albumin 2.8 g/dL (3.4-5.0); BUN/Creatinine Ratio 23.4; Calcium 8.8 mg/dL (8.5-10.1); Potassium 3.3 mmol/L (3.5-5.1); Total Protein 7.2 g/dL (6.4-8.2)
[2017-04-16] MEDS: InsuLIN REG 1unit/0.01ml Soln (100units/ml) SC SCH ×3 (06:00→18:00)
[2017-04-16] MEDS: metroNIDAZOLE 500MG/100ML 100 ML IV SCH ×3 (06:00→22:03)
[2017-04-16] MEDS: ACCU-CHEK COMFORT CURVE STRIP VI SCH ×3 (06:00→18:00)
[2017-04-16] MEDS: NYSTATIN (MOUTH-THROAT) 500,000 UNITS/5 ML SUSP MT SCH (06:00)
[2017-04-16 07:53] LABS: Allen Test Yes; Base Excess 7.8 mmol/L (-2.0-2.0); Blood 02Sat 92.6 % (96-100); Blood COHb 1.3 % (0.5-1.5); Blood MetHb 0.1 % (0.0-1.5); HCO3 32.9 mmol/L (22-26.0); HHb 7.3 % (0.0-5.0); MODE MASK - BIPAP; O2Hb 91.3 % (94.0-97.0); PIP 12; PO2 65.6 mmHg (80.0-100.0); PO2(T) 65.6 mmHg (80.0-100.0); Sample Type Arterial; pH 7.445 (7.350-7.450)
[2017-04-16] MEDS: PANTOPRAZOLE 40 MG/10 ML VIAL IV SCH (09:22)
[2017-04-16] MEDS: cefTRIAXone 1GM/50ML D5W 50 ML IV SCH ×2 (09:22→21:05)
[2017-04-16] MEDS: POTASSIUM CHL 10% (20 MEQ/15ML) 15ml ORAL SOLN GT SCH ×2 (09:23→10:00)
[2017-04-16] MEDS: FUROSEMIDE 40 MG/4 ML VIAL IV SCH (09:23)
[2017-04-16] MEDS: FLUCONAZOLE 200MG/100ML 100 ML IV SCH (09:23)
[2017-04-16] MEDS ORDERED: VANCOMYCIN 1GM/250ML D5W 250 ML IV SCH (11:00)
[2017-04-16] MEDS ORDERED: POTASSIUM CHL 10% (20 MEQ/15ML) 15ml ORAL SOLN GT ONE (11:00)
[2017-04-16] MEDS: POTASSIUM CHL 20MEQ/100ML 100 ML IV SCH ×2 (11:05→12:57)
[2017-04-16] MEDS: NOREPINEPHRINE BITARTRATE 250 ML IV SCH (22:15)
[2017-04-17] VITALS (82 sets, daily range): BP systolic 91–139; BP diastolic 41–97
[2017-04-17] MEDS: ACCU-CHEK COMFORT CURVE STRIP VI SCH ×4 (00:49→18:19)
[2017-04-17] MEDS: InsuLIN REG 1unit/0.01ml Soln (100units/ml) SC SCH ×4 (06:00→18:00)
[2017-04-17] MEDS: metroNIDAZOLE 500MG/100ML 100 ML IV SCH ×2 (06:26→13:34)
[2017-04-17] MEDS: cefTRIAXone 1GM/50ML D5W 50 ML IV SCH ×2 (09:00→21:00)
[2017-04-17] MEDS: POTASSIUM CHL 10% (20 MEQ/15ML) 15ml ORAL SOLN GT SCH (09:44)
[2017-04-17] MEDS: FLUCONAZOLE 200MG/100ML 100 ML IV SCH (10:43)
[2017-04-17] MEDS: FUROSEMIDE 40 MG/4 ML VIAL IV SCH (10:43)
[2017-04-17] MEDS: PANTOPRAZOLE 40 MG/10 ML VIAL IV SCH (10:43)
[2017-04-17] MEDS: ACETAMINOPHEN 325 MG TAB PO PRN (13:34)
[2017-04-17] MEDS ORDERED: POTASSIUM CHL 20MEQ/100ML 100 ML IV ONE (18:30)
[2017-04-18] VITALS (22 sets, daily range): BP systolic 93–149; BP diastolic 24–91
[2017-04-18] MEDS: IPRATROPIUM BROM 0.5 MG/2.5ML INH SOL NEB SCH ×3 (05:48→19:26)
[2017-04-18] MEDS: ALBUTEROL SULF 2.5 MG/0.5ML(0.5%) NEB SOLN NEB SCH ×3 (05:48→19:26)
[2017-04-18] MEDS: InsuLIN REG 1unit/0.01ml Soln (100units/ml) SC SCH ×4 (06:26→17:49)
[2017-04-18] MEDS: ACCU-CHEK COMFORT CURVE STRIP VI SCH ×4 (06:27→17:49)
[2017-04-18 09:18] LABS: Basophils # (auto) 0 uL; Basophils % (auto) 0.4 % (0.0-2.0); CONDITION Y; Eosinophils # (auto) 0.1 uL; Eosinophils % (auto) 1.5 % (0.0-7.0); Hematocrit 29.6 % (36.0-46.0); Hemoglobin 9.9 g/dL (12.2-16.2); Lymphocytes # (auto) 1.6 uL; Lymphocytes % (auto) 16.9 % (10.0-50.0); Mean Corpuscular Hemoglobin 33.2 pg (28.0-32.0); Mean Corpuscular Hgb Conc. 33.5 g/dL (32.0-36.0); Mean Corpuscular Volume 99.1 fL (80.0-100.0); Monocytes % (auto) 10.2 % (0.0-12.0); Neutrophils # (auto) 6.7 uL; Platelet Count (auto) 430 10^3/uL (140-450); Red Cell Distribution Width 18.1 % (11.6-16.0); White Blood Cell 9.4 10^3/uL (4.4-10.8)
[2017-04-18] MEDS: cefTRIAXone 1GM/50ML D5W 50 ML IV SCH ×2 (09:23→21:37)
[2017-04-18 09:44] LABS: BUN/Creatinine Ratio 20.7; Calcium 9.2 mg/dL (8.5-10.1)
[2017-04-18 09:49] LABS: Potassium 2.9 mmol/L (3.5-5.1)
[2017-04-18] MEDS: POTASSIUM CHL 10% (20 MEQ/15ML) 15ml ORAL SOLN GT SCH (10:00)
[2017-04-18] MEDS: POTASSIUM CHL 20MEQ/100ML 100 ML IV SCH ×3 (10:09→15:27)
[2017-04-18] MEDS: PANTOPRAZOLE 40 MG/10 ML VIAL IV SCH (10:09)
[2017-04-18] MEDS: FLUCONAZOLE 200MG/100ML 100 ML IV SCH (10:09)
[2017-04-18] MEDS ORDERED: ONDANSETRON HCL 4 MG/2 ML VIAL IV PRN (12:00)
[2017-04-18] MEDS ORDERED: ACETAMINOPHEN 325 MG TAB PO PRN (12:00)
[2017-04-18] MEDS ORDERED: DEXTROSE (50%) 50ML SYRG IV PRN (12:00)
[2017-04-18] MEDS ORDERED: FUROSEMIDE 40 MG TAB PO ONE (18:00)
[2017-04-19] MEDS: ACCU-CHEK COMFORT CURVE STRIP VI SCH ×4 (00:18→18:27)
[2017-04-19 05:36] LABS: Potassium 3.5 mmol/L (3.5-5.1)
[2017-04-19 05:39] LABS: BUN/Creatinine Ratio 19.2; Calcium 9.1 mg/dL (8.5-10.1); Magnesium 2.3 mg/dL (1.6-2.6)
[2017-04-19 05:47] VITALS: BP 107/52
[2017-04-19] MEDS: IPRATROPIUM BROM 0.5 MG/2.5ML INH SOL NEB SCH ×4 (05:51→18:26)
[2017-04-19] MEDS: ALBUTEROL SULF 2.5 MG/0.5ML(0.5%) NEB SOLN NEB SCH ×4 (05:51→18:26)
[2017-04-19] MEDS: InsuLIN REG 1unit/0.01ml Soln (100units/ml) SC SCH ×4 (06:00→18:00)
[2017-04-19 08:04] VITALS: BP 129/63
[2017-04-19] MEDS ORDERED: FUROSEMIDE 40 MG TAB PO SCH (10:00)
[2017-04-19] MEDS ORDERED: POTASSIUM CHL 10% (20 MEQ/15ML) 15ml ORAL SOLN PO ONE (10:15)
[2017-04-19] MEDS ORDERED: FUROSEMIDE 40 MG/4 ML VIAL IV ONE (10:15)
[2017-04-19] MEDS: FLUCONAZOLE 200MG/100ML 100 ML IV SCH (10:58)
[2017-04-19] MEDS: PANTOPRAZOLE 40 MG/10 ML VIAL IV SCH (10:59)
[2017-04-19] MEDS: Boost Glucose Control 8 Ounces PO SCH ×2 (12:00→18:27)
[2017-04-19 13:39] VITALS: BP 113/64
[2017-04-19 17:35] VITALS: BP 144/77
[2017-04-19] MEDS: cefTRIAXone 1GM/50ML D5W 50 ML IV SCH (20:30)
[2017-04-19 22:20] VITALS: BP 124/64
[2017-04-20] MEDS: ACCU-CHEK COMFORT CURVE STRIP VI SCH ×4 (00:58→18:03)
[2017-04-20] MEDS: InsuLIN REG 1unit/0.01ml Soln (100units/ml) SC SCH ×4 (00:58→18:00)
[2017-04-20 04:49] VITALS: BP 131/71
[2017-04-20] MEDS: ALBUTEROL SULF 2.5 MG/0.5ML(0.5%) NEB SOLN NEB SCH ×5 (06:46→23:45)
[2017-04-20] MEDS: IPRATROPIUM BROM 0.5 MG/2.5ML INH SOL NEB SCH ×5 (06:46→23:45)
[2017-04-20] MEDS: Boost Glucose Control 8 Ounces PO SCH ×3 (08:00→18:00)
[2017-04-20 09:00] VITALS: BP 130/65
[2017-04-20] MEDS ORDERED: FLUCONAZOLE 100 MG TAB PO ONE ×2 (11:15→12:00)
[2017-04-20] MEDS: FUROSEMIDE 40 MG/4 ML VIAL IV SCH (11:31)
[2017-04-20] MEDS: PANTOPRAZOLE 40 MG/10 ML VIAL IV SCH (11:31)
[2017-04-20] MEDS: POTASSIUM CHL 10% (20 MEQ/15ML) 15ml ORAL SOLN PO SCH (11:32)
[2017-04-20] MEDS: cefTRIAXone 1GM/50ML D5W 50 ML IV SCH ×2 (11:33→20:17)
[2017-04-20 13:00] VITALS: BP 123/70
[2017-04-20 17:00] VITALS: BP 128/66
[2017-04-20 22:00] VITALS: BP 124/63
[2017-04-21] MEDS: ACCU-CHEK COMFORT CURVE STRIP VI SCH ×5 (00:23→23:49)
[2017-04-21] MEDS: InsuLIN REG 1unit/0.01ml Soln (100units/ml) SC SCH ×6 (00:23→23:49)
[2017-04-21 05:00] VITALS: BP 129/71
[2017-04-21] MEDS: ALBUTEROL SULF 2.5 MG/0.5ML(0.5%) NEB SOLN NEB SCH ×3 (06:31→18:56)
[2017-04-21] MEDS: IPRATROPIUM BROM 0.5 MG/2.5ML INH SOL NEB SCH ×3 (06:31→18:56)
[2017-04-21 09:01] VITALS: BP 124/48
[2017-04-21] MEDS: FLUCONAZOLE 100 MG TAB PO SCH (10:00)
[2017-04-21] MEDS: POTASSIUM CHL 10% (20 MEQ/15ML) 15ml ORAL SOLN PO SCH (10:00)
[2017-04-21 13:49] VITALS: BP 137/57
[2017-04-21] MEDS: Boost Glucose Control 8 Ounces PO SCH ×3 (14:07→18:38)
[2017-04-21] MEDS: cefTRIAXone 1GM/50ML D5W 50 ML IV SCH ×2 (14:08→21:21)
[2017-04-21] MEDS: FUROSEMIDE 40 MG/4 ML VIAL IV SCH (14:09)
[2017-04-21] MEDS: PANTOPRAZOLE 40 MG/10 ML VIAL IV SCH (14:09)
[2017-04-21 14:19] LABS: Allen Test Yes; Base Excess 10.6 mmol/L (-2.0-2.0); Blood 02Sat 91.6 % (96-100); Blood MetHb 0.3 % (0.0-1.5); HCO3 35.7 mmol/L (22-26.0); HHb 8.4 % (0.0-5.0); MODE ROOM AIR; O2Hb 91.3 % (94.0-97.0); PCO2 50.2 mmHg (35.0-45.0); PCO2(T) 49.1 mmHg (35.0-45.0); PO2 57.9 mmHg (80.0-100.0); PO2(T) 55.9 mmHg (80.0-100.0); Sample Type Arterial
[2017-04-21 17:01] VITALS: BP 141/67
[2017-04-21 22:00] VITALS: BP 140/72
[2017-04-22 05:00] VITALS: BP 128/69
[2017-04-22] MEDS: ALBUTEROL SULF 2.5 MG/0.5ML(0.5%) NEB SOLN NEB SCH ×3 (05:30→11:18)
[2017-04-22] MEDS: IPRATROPIUM BROM 0.5 MG/2.5ML INH SOL NEB SCH ×3 (05:30→11:18)
[2017-04-22] MEDS: InsuLIN REG 1unit/0.01ml Soln (100units/ml) SC SCH ×3 (06:00→13:17)
[2017-04-22] MEDS: ACCU-CHEK COMFORT CURVE STRIP VI SCH ×2 (06:09→13:16)
[2017-04-22 09:31] VITALS: BP 136/74
[2017-04-22] MEDS: POTASSIUM CHL 10% (20 MEQ/15ML) 15ml ORAL SOLN PO SCH (10:00)
[2017-04-22 13:00] VITALS: BP 130/63
[2017-04-22] MEDS: Boost Glucose Control 8 Ounces PO SCH ×2 (13:15→13:17)
[2017-04-22] MEDS: cefTRIAXone 1GM/50ML D5W 50 ML IV SCH (13:15)
[2017-04-22] MEDS: FLUCONAZOLE 100 MG TAB PO SCH (13:16)
[2017-04-22] MEDS: PANTOPRAZOLE 40 MG/10 ML VIAL IV SCH (13:16)
[2017-04-22] MEDS: FUROSEMIDE 40 MG/4 ML VIAL IV SCH (13:16)
== END 2017-04-22 17:07 | disposition home or self-care (01) | DRG 870 ==
LOC: EDBD 18:54 → ER 19:08 → TELE 19:09 → ICU WEST 04-05 01:56 → EAST 04-18 20:45
PROVIDERS: ADMIT Nurse Practitioner; ATTEND Internal Medicine
PROC: 5A1955Z Respiratory Ventilation, Greater than 96 Consecutive Hours (ICD-10-PCS; principal; 2017-04-04)
PROC: 0BH17EZ Insertion of Endotracheal Airway into Trachea, Via Natural or Artificial Opening (ICD-10-PCS; 2017-04-04)
PROC: 0FPB8DZ Removal of Intraluminal Device from Hepatobiliary Duct, Via Natural or Artificial Opening Endoscopic (ICD-10-PCS; 2017-04-07)
PROC: 30233N1 Transfusion of Nonautologous Red Blood Cells into Peripheral Vein, Percutaneous Approach (ICD-10-PCS; 2017-04-07)
PROC: 0FC98ZZ Extirpation of Matter from Common Bile Duct, Via Natural or Artificial Opening Endoscopic (ICD-10-PCS; 2017-04-07)
PROC: BF101ZZ Fluoroscopy of Bile Ducts using Low Osmolar Contrast (ICD-10-PCS; 2017-04-07)
DX: A41.51 Sepsis due to Escherichia coli [E. coli] (principal); N17.0 Acute kidney failure with tubular necrosis; J96.00 Acute respiratory failure, unspecified whether with hypoxia or hypercapnia; R65.21 Severe sepsis with septic shock; E43 Unspecified severe protein-calorie malnutrition; G92 Toxic encephalopathy; I50.33 Acute on chronic diastolic (congestive) heart failure; D69.6 Thrombocytopenia, unspecified; K80.31 Calculus of bile duct with cholangitis, unspecified, with obstruction; N18.4 Chronic kidney disease, stage 4 (severe); N12 Tubulo-interstitial nephritis, not specified as acute or chronic; I13.0 Hypertensive heart and chronic kidney disease with heart failure and stage 1 through stage 4 chronic kidney disease, or unspecified chronic kidney disease; F03.90 Unspecified dementia, unspecified severity, without behavioral disturbance, psychotic disturbance, mood disturbance, and anxiety; E87.6 Hypokalemia; E78.5 Hyperlipidemia, unspecified; D64.9 Anemia, unspecified; J44.9 Chronic obstructive pulmonary disease, unspecified; K21.9 Gastro-esophageal reflux disease without esophagitis; R26.9 Unspecified abnormalities of gait and mobility; F32.9 Major depressive disorder, single episode, unspecified; K57.90 Diverticulosis of intestine, part unspecified, without perforation or abscess without bleeding; M19.90 Unspecified osteoarthritis, unspecified site; E11.22 Type 2 diabetes mellitus with diabetic chronic kidney disease; E11.65 Type 2 diabetes mellitus with hyperglycemia; Z68.27 Body mass index [BMI] 27.0-27.9, adult; Z90.49 Acquired absence of other specified parts of digestive tract; Z81.8 Family history of other mental and behavioral disorders; Z82.49 Family history of ischemic heart disease and other diseases of the circulatory system; Z90.5 Acquired absence of kidney
CPT/HCPCS: 31500; 36415; 36556; 36600; 51702; 70450; 71010; 71250; 74000; 74176; 76000; 76705; 76775; 80048; 80053; 80061; 80074; 80202; 81001; 82140; 82533; 82570; 82607; 82746; 82805; 82962; 83036; 83605; 83735; 83880; 84100; 84132; 84156; 84300; 84439; 84443; 84484; 84550; 85007; 85025; 85027; 85379; 85610; 85730; 86850; 86900; 86901; 86920; 87040; 87070; 87077; 87081; 87086; 87186; 87205; 87493; 92610; 93005; 93306; 94002; 94003; 94640; 95819; 96361; 96365; 96367; 97163; 97530; 99291; C9113; J0330; J0696; J1450; J1815; J2001; J2250; J2405; J2543; J2704; J3480; J3490